=== PATIENT | male | born 1960 | race Caucasian/White ===

== ENCOUNTER 2017-09-24 15:46 | Inpatient (IN) | payer OTHER ==
[~2017-09-24] VITALS: Ht 172.7 cm; Wt 76.2 kg
[2017-09-24] MEDS ORDERED: OMNIPAQUE 350 MG/ML, 100ML BOTTLE ONE (16:14)
[2017-09-24 16:18] LABS: BASOPHILS # (AUTO) 0.02 x10^3/uL (0-0.1); BASOPHILS % (AUTO) 0 % (0-1); EOSINOPHILS # (AUTO) 0.23 x10^3/uL (0-0.4); EOSINOPHILS % (AUTO) 3 % (1-7); LYMPHOCYTES # (AUTO) 1.53 x10^3/uL (1-3.4); LYMPHOCYTES % (AUTO) 22 % (22-44); MD NO; MEAN CORPUSCULAR HEMOGLOBIN 27.6 pg (27.5-34.5); MEAN CORPUSCULAR VOLUME 83.8 fL (81-97); MEAN PLATELET VOLUME 8.9 fL (7.4-10.4); MONOCYTES # (AUTO) 0.66 x10^3/uL (0.2-0.8); MONOCYTES % (AUTO) 9 % (2-9); NEUTROPHILS # (AUTO) 4.59 x10^3/uL (1.8-6.8); NEUTROPHILS % (AUTO) 65 % (42-75); PLATELET COUNT 254 x10^3/uL (130-400); RED BLOOD COUNT 4.75 x10^6/uL (4.38-5.82); RED CELL DISTRIBUTION WIDTH 15.2 % (9.4-14.8)
[2017-09-24 16:29] LABS: PROTHROMBIN TIME 10.3 Seconds (9.6-11.5)
[2017-09-24] MEDS ORDERED: SODIUM CHLORIDE FLUSH 10ML SYR IVF PRN (16:30)
[2017-09-24] MEDS ORDERED: METF500T5 PO (16:42)
[2017-09-24] MEDS ORDERED: ASPI-650 PO (16:42)
[2017-09-24] MEDS ORDERED: INSU100V8 SQ (16:43)
[2017-09-24 18:03] VITALS: BP 156/97
[2017-09-24 19:43] VITALS: BP 158/101
[2017-09-24] MEDS ORDERED: BISACODYL 10 MG SUPP PR PRN (20:00)
[2017-09-24] MEDS ORDERED: DEXTROSE 50%, 50ML SYRINGE IVPush PRN (20:00)
[2017-09-24] MEDS ORDERED: ONDANSETRON ODT 4 MG PO PRN (20:00)
[2017-09-24] MEDS ORDERED: DOCUSATE 100 MG CAPSULE PO PRN (20:00)
[2017-09-24] MEDS ORDERED: ACETAMINOPHEN 325 MG TABLET PO PRN (20:00)
[2017-09-24] MEDS ORDERED: POLYETHYLENE GLYCOL 17 GM PACKET PO PRN (20:00)
[2017-09-24] MEDS ORDERED: GLUCAGON 1 MG IM PRN (20:00)
[2017-09-24] MEDS ORDERED: LABETALOL 5MG/ML, 20ML IV PRN (20:00)
[2017-09-24] MEDS ORDERED: DEXTROSE 4 GM TAB.CHEW PO PRN (20:00)
[2017-09-24 20:22] LABS: HEMOGLOBIN A1C 6.3 % (4.2-6.3)
[2017-09-24] MEDS ORDERED: metFORMIN 500 MG TABLET PO SCH (21:00)
[2017-09-24] MEDS: INSULIN LISPRO 100 UNITS/ML, PEN SQ-INSULIN SCH (21:00)
[2017-09-24] MEDS: INSULIN GLARGINE 100 UNITS/ML, PEN SQ-INSULIN SCH (21:00)
[2017-09-24] MEDS: SODIUM CHLORIDE FLUSH 10ML SYR IVF SCH (21:40)
[2017-09-24] MEDS: ATORVASTATIN 80 MG TABLET PO SCH (21:40)
[2017-09-25 00:30] VITALS: BP 164/92
[2017-09-25 05:31] LABS: BASOPHILS # (AUTO) 0.06 x10^3/uL (0-0.1); BASOPHILS % (AUTO) 1 % (0-1); EOSINOPHILS # (AUTO) 0.32 x10^3/uL (0-0.4); EOSINOPHILS % (AUTO) 4 % (1-7); LYMPHOCYTES # (AUTO) 1.83 x10^3/uL (1-3.4); LYMPHOCYTES % (AUTO) 22 % (22-44); MD NO; MEAN CORPUSCULAR HEMOGLOBIN 28.1 pg (27.5-34.5); MEAN CORPUSCULAR HGB CONC 33.8 g/dL (33.2-36.2); MEAN CORPUSCULAR VOLUME 83.2 fL (81-97); MEAN PLATELET VOLUME 9.5 fL (7.4-10.4); MONOCYTES # (AUTO) 0.83 x10^3/uL (0.2-0.8); MONOCYTES % (AUTO) 10 % (2-9); NEUTROPHILS # (AUTO) 5.25 x10^3/uL (1.8-6.8); NEUTROPHILS % (AUTO) 63 % (42-75); PLATELET COUNT 254 x10^3/uL (130-400); RED BLOOD COUNT 4.76 x10^6/uL (4.38-5.82); RED CELL DISTRIBUTION WIDTH 15.1 % (9.4-14.8)
[2017-09-25 05:40] LABS: ALBUMIN 3.4 g/dL (3.4-5.0); ANION GAP 6 mmol/L (5-15); CALCIUM 8.8 mg/dL (8.5-10.1); CHLORIDE 108 mmol/L (98-107)
[2017-09-25 05:43] LABS: ALANINE AMINOTRANSFERASE 18 U/L (12-78); ALKALINE PHOSPHATASE 72 U/L (45-117); BILIRUBIN,TOTAL 0.4 mg/dL (0.2-1.0); CHOL/HDL RATIO 5.1; CHOLESTEROL, TOTAL 187 mg/dL (140-239); CREATININE 0.83 mg/dL (0.7-1.3); HDL CHOL % 20 % (26-37); HDL CHOLESTEROL (DIRECT) 37 mg/dL (40-60); LDL CHOLESTEROL,CALCULATED 100 mg/dL (54-169); LDL/HDL RATIO 2.7 (0.5-3.0); TOTAL PROTEIN 7.5 g/dL (6.4-8.2); TRIGLYCERIDES 251 mg/dL (50-200); VLDL CHOLESTEROL 50 mg/dL (0-25)
[2017-09-25] MEDS: INSULIN LISPRO 100 UNITS/ML, PEN SQ-INSULIN SCH ×4 (07:00→21:00)
[2017-09-25 07:20] VITALS: BP 143/81
[2017-09-25] MEDS: ASPIRIN 81 MG TABLET CHEW PO/NG SCH (09:43)
[2017-09-25] MEDS: SODIUM CHLORIDE FLUSH 10ML SYR IVF SCH ×2 (09:43→21:56)
[2017-09-25 12:19] VITALS: BP 152/83
[2017-09-25 19:15] VITALS: BP 143/85
[2017-09-25] MEDS: ATORVASTATIN 80 MG TABLET PO SCH (21:55)
[2017-09-25] MEDS: INSULIN GLARGINE 100 UNITS/ML, PEN SQ-INSULIN SCH (21:56)
[2017-09-26 02:01] VITALS: BP 156/103
[2017-09-26 02:37] VITALS: BP 153/93
[2017-09-26 06:50] VITALS: BP 138/84
[2017-09-26] MEDS: INSULIN LISPRO 100 UNITS/ML, PEN SQ-INSULIN SCH ×2 (08:00→11:48)
[2017-09-26] MEDS: ASPIRIN 81 MG TABLET CHEW PO/NG SCH (08:21)
[2017-09-26] MEDS: SODIUM CHLORIDE FLUSH 10ML SYR IVF SCH (08:21)
[2017-09-26 12:32] VITALS: BP 149/87
[2017-09-26] MEDS ORDERED: ATOR-2 PO (13:24)
[2017-09-26] MEDS ORDERED: metFORMIN 500 MG TABLET PO SCH (21:00)
== END 2017-09-26 15:05 | disposition home or self-care (01) | DRG 65 ==
LOC: ED 16:26 → EDIP 16:27 → ED 17:21 → 4EST 17:33 → DCLOUNGE 09-26 14:50
PROVIDERS: ADMIT Hospitalist; ATTEND Hospitalist
DX: I63.9 Cerebral infarction, unspecified (principal); G81.94 Hemiplegia, unspecified affecting left nondominant side; E11.9 Type 2 diabetes mellitus without complications; E78.5 Hyperlipidemia, unspecified; F10.20 Alcohol dependence, uncomplicated; F17.210 Nicotine dependence, cigarettes, uncomplicated; I11.9 Hypertensive heart disease without heart failure; R47.81 Slurred speech; I49.3 Ventricular premature depolarization; I65.29 Occlusion and stenosis of unspecified carotid artery; R29.810 Facial weakness; Z82.3 Family history of stroke; Z82.49 Family history of ischemic heart disease and other diseases of the circulatory system; Z83.3 Family history of diabetes mellitus; Z91.19 Patient's noncompliance with other medical treatment and regimen
CPT/HCPCS: 36415; 70450; 70496; 70498; 70551; 80047; 80053; 80061; 82962; 83036; 85025; 85610; 85730; 93005; 93306; 99285; Q9967; 92523-GN; J1815

== ENCOUNTER 2019-03-27 12:17 | Inpatient (IN) | payer SELFPAY ==
[~2019-03-27] VITALS: Ht 172.7 cm; Wt 83.5 kg
[~2019-03-27 12:17] MED LIST: ASPI-650 PO; ATOR-2 PO; INSU100V8 SQ; METF500T17 PO
--- NOTE | 2019-03-27 12:35 | NUR ---
PT STRAIGHT BACK TO [facility] FROM [place] VIA WC, TRANSFERRED TO [facility] WITH CGA, CHANGED INTO GOWN, PIV PLACED/LABS DRAWN, SISTER AT BS, PT AAOX4 & RESPONDS APPROP TO STAFF WITH MILDLY SLURRED SPEECH/LT FACIAL DROOP, BASELINE NEURO ASSESSMENT COMPLETED, LAST PO INTAKE ~0930 THIS AM; HX CVA WITH LT-SIDED WEAKNESS 2018, ASA 81MG THIS AM, DENIES HX/RECENT BLEEDING, PT TO CT. Addendum: 03/27/19 at 1322 by VERA (LATE ENTRY) AT 1225 PT STRAIGHT BACK TO [facility] FROM [place] VIA WC, LT-SIDED WEAKNESS TO LUE/LLE, TRANSFERRED TO [facility] WITH CGA, CHANGED INTO GOWN, PIV PLACED/LABS DRAWN, SISTER AT BS, PT AAOX4 & RESPONDS APPROP TO STAFF WITH MILDLY SLURRED SPEECH/LT FACIAL DROOP, BASELINE NEURO ASSESSMENT COMPLETED, LAST PO INTAKE ~0930 THIS AM; HX CVA WITH LT-SIDED WEAKNESS 2018, ASA 81MG THIS AM, DENIES HX/RECENT BLEEDING, PT TO CT.
[2019-03-27 12:41] LABS: BASOPHILS # (AUTO) 0.01 x10^3/uL (0-0.1); BASOPHILS % (AUTO) 0 % (0-1); EOSINOPHILS # (AUTO) 0.13 x10^3/uL (0-0.4); EOSINOPHILS % (AUTO) 2 % (1-7); LYMPHOCYTES # (AUTO) 1.69 x10^3/uL (1-3.4); LYMPHOCYTES % (AUTO) 31 % (22-44); MD NO; MEAN CORPUSCULAR HEMOGLOBIN 28.7 pg (27.5-34.5); MEAN CORPUSCULAR HGB CONC 33.1 g/dL (33.2-36.2); MEAN CORPUSCULAR VOLUME 86.7 fL (81-97); MEAN PLATELET VOLUME 9.5 fL (7.4-10.4); MONOCYTES # (AUTO) 0.41 x10^3/uL (0.2-0.8); MONOCYTES % (AUTO) 7 % (2-9); NEUTROPHILS # (AUTO) 3.28 x10^3/uL (1.8-6.8); NEUTROPHILS % (AUTO) 59 % (42-75); PLATELET COUNT 240 x10^3/uL (130-400); RED BLOOD COUNT 4.98 x10^6/uL (4.38-5.82); RED CELL DISTRIBUTION WIDTH 14.1 % (9.4-14.8)
--- NOTE | 2019-03-27 12:48 | NUR ---
DR ASKEW AT BS
[2019-03-27 12:51] LABS: INTERNATIONAL NORMALIZED RATIO 0.93 (0.93-1.1); PROTHROMBIN TIME 9.9 Seconds (9.6-11.5)
[2019-03-27] MEDS ORDERED: OMNIPAQUE 350 MG/ML, 100ML BOTTLE ONE (12:51)
[2019-03-27] MEDS ORDERED: LOSARTAN PO (13:02)
--- NOTE | 2019-03-27 13:25 | NUR ---
PT LAYING ON GURNEY WITH HOB ELEVATED, TALKING TO SISTER AT BS, NO CHANGES IN NEURO ASSESSMENT FROM BASELINE, NAD, NO NEEDS AT THIS TIME, CALL LIGHT WITHIN REACH.
[2019-03-27] MEDS ORDERED: LOSA25TA12 PO (14:09)
[2019-03-27] MEDS ORDERED: DOCUSATE 100 MG CAPSULE PO PRN (14:30)
[2019-03-27] MEDS ORDERED: LABETALOL 5MG/ML, 20ML IVPush PRN (15:00)
--- NOTE | 2019-03-27 15:03 | NUR ---
GRAZYNAAR TELEPHONE HAND-OFF REPORT GIVEN TO SATISH AMADOR. PT IN MRI. CALLED MRI AND SPOKE WITH DERECK, ROOF PLUMBER, WHO STATES SHE WILL REQUEST THAT PATIENT GO UP AFTER HIS XRAYS ARE COMPLETED AFTER MRI.
[2019-03-27] MEDS ORDERED: GADOTERATE 10 MMOL/20 ML SYR ONE (15:12)
[2019-03-27 15:52] VITALS: BP 180/104
[2019-03-27] MEDS: INSULIN LISPRO 100 UNITS/ML, PEN SQ-INSULIN SCH ×2 (16:00→20:33)
[2019-03-27] MEDS: ENOXAPARIN 40 MG/0.4 ML SQ SCH (16:49)
[2019-03-27] MEDS ORDERED: MINE3.5O4 EACHEYE (16:57)
[2019-03-27] MEDS ORDERED: CARB15DR59 EACHEYE (16:58)
[2019-03-27 19:04] LABS: AMPHETAMINE SCREEN, URINE Negative (Negative); BARBITURATE SCREEN, URINE Negative (Negative); BENZODIAZEPINE SCREEN, URINE Negative (Negative); CANNABINOID SCREEN, URINE Negative (Negative); COCAINE SCREEN, URINE Negative (Negative); METHADONE SCREEN, URINE Negative (Negative); OPIATE SCREEN, URINE Negative (Negative)
[2019-03-27 19:46] VITALS: BP 178/106
[2019-03-27] MEDS: ATORVASTATIN 80 MG TABLET PO SCH (20:32)
[2019-03-27] MEDS ORDERED: ATORVASTATIN 80 MG TABLET PO SCH (21:00)
[2019-03-27 22:32] VITALS: BP 190/118
[2019-03-27] MEDS ORDERED: LABETALOL 20 MG/4 ML IVPush PRN (23:00)
[2019-03-28 00:34] VITALS: BP 174/92
[2019-03-28 02:13] VITALS: BP 168/97
[2019-03-28 05:04] LABS: BASOPHILS # (AUTO) 0.05 x10^3/uL (0-0.1); BASOPHILS % (AUTO) 1 % (0-1); EOSINOPHILS # (AUTO) 0.16 x10^3/uL (0-0.4); EOSINOPHILS % (AUTO) 2 % (1-7); LYMPHOCYTES % (AUTO) 21 % (22-44); MD NO; MEAN CORPUSCULAR HEMOGLOBIN 28.8 pg (27.5-34.5); MEAN CORPUSCULAR HGB CONC 32.7 g/dL (33.2-36.2); MEAN CORPUSCULAR VOLUME 87.9 fL (81-97); MONOCYTES # (AUTO) 0.64 x10^3/uL (0.2-0.8); MONOCYTES % (AUTO) 8 % (2-9); NEUTROPHILS # (AUTO) 5.78 x10^3/uL (1.8-6.8); NEUTROPHILS % (AUTO) 69 % (42-75); PLATELET COUNT 241 x10^3/uL (130-400); RED BLOOD COUNT 4.73 x10^6/uL (4.38-5.82); RED CELL DISTRIBUTION WIDTH 13.9 % (9.4-14.8)
[2019-03-28 05:08] LABS: ALBUMIN 3.3 g/dL (3.4-5.0); ANION GAP 6 mmol/L (5-15); CHLORIDE 108 mmol/L (98-107)
[2019-03-28 05:13] LABS: ALANINE AMINOTRANSFERASE 24 U/L (12-78); ALKALINE PHOSPHATASE 62 U/L (45-117); BILIRUBIN,TOTAL 0.5 mg/dL (0.2-1.0); CHOLESTEROL, TOTAL 116 mg/dL (140-239); CREATININE 0.76 mg/dL (0.7-1.3); HDL CHOL % 34 % (26-37); HDL CHOLESTEROL (DIRECT) 39 mg/dL (40-60); LDL CHOLESTEROL,CALCULATED 50 mg/dL (54-169); LDL/HDL RATIO 1.3 (0.5-3.0); TOTAL PROTEIN 7.4 g/dL (6.4-8.2); TRIGLYCERIDES 135 mg/dL (50-200); VLDL CHOLESTEROL 27 mg/dL (0-25)
[2019-03-28 06:45] VITALS: BP 148/94
[2019-03-28] MEDS: INSULIN LISPRO 100 UNITS/ML, PEN SQ-INSULIN SCH ×4 (07:36→19:49)
[2019-03-28] MEDS: LOSARTAN 50MG TABLET PO SCH (08:24)
[2019-03-28] MEDS: ASPIRIN 325 MG TABLET EC PO SCH (08:24)
--- NOTE | 2019-03-28 08:53 | NUR ---
REC: Reg/thins; orange sheet not indicated Addendum: 03/28/19 at 0853 by Maira GUSMAN Amended: Links added.
[2019-03-28] MEDS ORDERED: ASPIRIN 81 MG TABLET CHEW PO/NG SCH (09:00)
[2019-03-28] MEDS ORDERED: CLOPIDOGREL 300 MG TABLET PO ONE (10:00)
[2019-03-28 12:35] VITALS: BP 161/94
[2019-03-28] MEDS: ENOXAPARIN 40 MG/0.4 ML SQ SCH (16:16)
[2019-03-28 16:23] VITALS: BP 173/112
[2019-03-28] MEDS: LABETALOL 100 MG TABLET PO SCH (17:45)
[2019-03-28 19:39] VITALS: BP 167/98
[2019-03-28] MEDS: ATORVASTATIN 80 MG TABLET PO SCH (20:32)
[2019-03-29 00:32] VITALS: BP 152/96
[2019-03-29 07:43] VITALS: BP 159/96
[2019-03-29] MEDS: INSULIN LISPRO 100 UNITS/ML, PEN SQ-INSULIN SCH ×2 (08:12→11:45)
[2019-03-29] MEDS: LOSARTAN 50MG TABLET PO SCH (08:45)
[2019-03-29] MEDS: LABETALOL 100 MG TABLET PO SCH (08:45)
[2019-03-29] MEDS: ASPIRIN 325 MG TABLET EC PO SCH (08:45)
[2019-03-29] MEDS ORDERED: CLOPIDOGREL 75 MG TABLET PO SCH (09:00)
[2019-03-29] MEDS ORDERED: ASPI-650 PO (10:50)
[2019-03-29] MEDS ORDERED: LOSA25TA12 PO (10:50)
[2019-03-29] MEDS ORDERED: LABE200T6 PO (10:50)
[2019-03-29] MEDS ORDERED: ATOR-2 PO (10:50)
[2019-03-29] MEDS ORDERED: CLOP75TA PO (10:50)
== END 2019-03-29 12:17 | disposition home or self-care (01) | DRG 65 ==
LOC: ED 12:29 → EDIP 14:09 → 4WST 15:35 → DCLOUNGE 03-29 12:02
PROVIDERS: ADMIT Internal Medicine; ATTEND Internal Medicine
DX: I63.81 Other cerebral infarction due to occlusion or stenosis of small artery (principal); I69.354 Hemiplegia and hemiparesis following cerebral infarction affecting left non-dominant side; E11.9 Type 2 diabetes mellitus without complications; E78.00 Pure hypercholesterolemia, unspecified; E78.5 Hyperlipidemia, unspecified; I10 Essential (primary) hypertension; I16.0 Hypertensive urgency; R13.10 Dysphagia, unspecified; Z82.3 Family history of stroke; Z79.4 Long term (current) use of insulin; Z91.018 Allergy to other foods
CPT/HCPCS: 36415; 70450; 70496; 70498; 70553; 71045; 80047; 80053; 80061; 80307; 82306; 82607; 82962; 83036; 85025; 85610; 85730; 93005; 93306; 99291; G0378; J1650; Q9967; 92522-GN; A9575; J1815; J3490